=== PATIENT | female | born 1995 | race Hispanic/Latino ===

== ENCOUNTER 2025-01-25 02:35 | Emergency (ER) | payer OTHER, SELFPAY ==
[2025-01-25 02:39] VITALS: BP 125/75
[2025-01-25 02:58] VITALS: BMI 44.6
--- NOTE | 2025-01-25 03:06 | ED.GENMED ---
History of Present Illness
General
Chief Complaint: Chest Pain
Source: patient and family (Mother)
Exam Limitations: none
Time Seen by Provider: 01/25/25 03:01
Nursing documentation reviewed up to this point in time: agreed with
History of Present Illness
History of Present Illness:
Pleasant 29-year-old female presents to the emergency department with epigastric pain. The pain starts in her epigastrium and radiates up to her upper chest. Patient was at her dad's birthday alliance party and ate cake and approximately 15 minutes after
eating the cake she had developed this pain. She denies fever, chills, or shortness of breath. She did have some nausea without vomiting. Patient denies any cardiac history. She reports no medical problems except for PCOS for which she takes
metformin and OCPs. Patient has a family history for CVA and hypertension. Patient denies tobacco or illicit drug use. She drinks alcohol on occasion. She works for [employer]. She was seen at [facility] approximate year
ago for similar pain. She had a cardiac workup and was discharged with a diagnosis of anxiety. She has not seen a jointer submarine cable.
Review of Systems
Review of Systems
Allergies reviewed?: Yes
All Other Systems: ROS reviewed and negative except as documented in HPI and ROS
Constitutional: Reports no symptoms
EENT: Reports no symptoms
Respiratory: Denies trouble breathing
Cardiac: Reports chest pain
ABD/GI: Reports abdominal pain and nausea; Denies vomiting
: Reports no symptoms
Musculoskeletal: Reports no symptoms
Skin: Reports no symptoms
Neurological: Reports no symptoms
Endocrine: Reports no symptoms
Hematologic/Lymphatic: Reports no symptoms
Psychiatric: Reports no symptoms
Phy Exam
Physical Exam
Physical Exam:
Physical Exam
Vital signs and allergy list reviewed and agreed with.
GENERAL: Alert , in minimal apparent distress
EYE: pupils equal, EOMI, anicteric
NECK: Supple, no significant adenopathy. No masses. Trachea midline
ENT: Oropharynx is clear, mmm.
CARDIAC: Regular rate and rhythm . No M/R/G
LUNGS: Clear breath sounds bilaterally, no acute respiratory distress, no wheezes/rales/rhonchi
ABDOMEN: Soft, without focal tenderness, no r/g, no cvat. Normal BSx4q
NEUROLOGICAL: Alert and oriented, no focal neuro deficits
SKIN: Warm and dry, skin intact.
MUSCULOSKELETAL: No edema, well perfused. Moves all 4 extremities
PSYCH: Normal and appropriate interaction.
Scores
Heart Score for Chest Pain Patients
STEMI patient?: No
History: Slightly or Non-Suspicious
ECG: Normal
Age: </= 45 years
Risk Factors: 1 or 2 Risk Factors
Troponin: </= Normal Limit
Heart Score for Chest Pain Patients: 1
Heart Score Risk: 2.5% MACE over next 6 weeks
Course
Orders/Labs/Results
Orders:
Orders
01/25/25 02:36
ECG [Electrocardiogram (*1)] Urgent
Reason for Study: Chest Pain
EKG- Treatment ONCE
01/25/25 02:47
Test Result ONCE
01/25/25 03:06
Complete Blood Count/With Diff Urgent
Comprehensive Metabolic Panel Urgent
HCG, Serum Qualitative Screen Urgent
Troponin I Urgent
Urine Microscopic Reflex Cult Urgent
Urine Reflex Culture from UA [Urinalysis Reflex To Culture] Urgent
Date Specimen was Collected: 01/25/25
Time Specimen was Collected: 03:04
Urine Culture Urgent
SEA Source: U
Specimen Description:
Date Specimen was Collected: 01/25/25
Time Specimen was Collected: 03:04
0.9% Sodium Chloride 1000 ml [Nss] 1,000 ml IV BOLUS
Mag Hydrox/Al Hydrox/Simeth [Maalox] 30 ml Phenobarb/Hyoscy/Atropine/Scop [] 10 ml Viscous Lidocaine 2% [Xylocaine Viscous Cup] 10 ml PO NOW
Ondansetron Injectable [Zofran] 4 mg IV NOW STA
CR Chest - 2 Views Urgent
Comment:
Reason For Exam: cp
US Abdomen Complete/Upper Urgent
Comment:
Reason For Exam: epigastric and RUQ pain
01/25/25 03:07
Ondansetron Injectable [Zofran] 4 mg .ROUTE .STK-MED ONE
01/25/25 03:09
Mag Hydrox/Al Hydrox/Simeth [Maalox] 30 ml .ROUTE .STK-MED ONE
Phenobarb/Hyoscy/Atropine/Scop [] 10 ml .ROUTE .STK-MED ONE
Viscous Lidocaine 2% [Xylocaine Viscous Cup] 15 ml .ROUTE .STK-MED ONE
Abnormal Lab Results
01/25/25
03:06
MPV 10.7 H fL
(7.4-10.4)
Absolute Neuts (auto) 8.7 H 10^3/uL
(1.4-6.5)
Neutrophils % 82.9 H %
(42.2-75.2)
Lymphocytes % 12.2 L %
(20.5-51.1)
BUN 19 H mg/dl
(7-17)
Glucose 146 H mg/dl
(70-99)
Leukocyte Esterase Rfl 1+ A
(Negative)
Urine RBC 3-6 A /HPF
(0-2)
Urine Bacteria (Reflex) Moderate A
(Negative)
Urine Albumin (Reflex) 2+ A
(Neg - Trace)
01/25/25 03:06
01/25/25 03:06
Vital Signs
Initial and Last Documented VS:
Initial Vital Signs
Temp Pulse Resp BP Pulse Ox
97.5 F 71 20 125/75 100
01/25/25 02:39 01/25/25 02:39 01/25/25 02:39 01/25/25 02:39 01/25/25 02:39
Last Documented Vital Signs
Temp Pulse Resp BP Pulse Ox
97.5 F 72 18 136/88 99
01/25/25 02:39 01/25/25 06:23 01/25/25 06:23 01/25/25 06:23 01/25/25 06:23
*Critical Care Note
Total Time (30-74mins, 75-104mins- exclusive of procedures): Not Applicable
Update Note
Update Note:
Ultrasound right upper quadrant
IMPRESSION:
Several gallstones, largest measuring 1.0 cm within mildly distended gallbladder. No gallbladder wall thickening or pericholecystic fluid cleared negative Shin sign. Common bile duct measures upper limits of normal at 6 mm.
Heterogeneous hyperechoic fatty liver.
Kidneys without hydronephrosis.
No gross abnormality of the partially visualized pancreas and spleen.
Patient resting comfortably. Discussed relatively normal lab work and positive ultrasound findings with patient. At this point she is in no acute distress and wishes to be discharged. She will get the name of our general surgery doc as well as
pain medicine. Diagnosis is biliary colic.
ED Attending Note
-
Portions of this chart may have been created with voice recognition software.� Occasional wrong word or��sound alike� substitutions may have occurred due to the inherent limitations of voice recognition software.
Discharge Plan
Departure
Patient Disposition: Home (Routine Discharge)
Date of Disposition: 01/25/25
Time of Disposition: 04:59
Patient with high blood pressure during this ER visit?: Yes
Condition: Good
Discharge Problem:
Biliary colic
Instructions: Randall Diet, Gallstones ED, Abdominal Pain, BLOOD PRESSURE
Prescriptions:
New
diclofenac sodium 75 mg tablet,delayed release (DR/EC)
75 mg PO BID Qty: 10 0RF
Referrals:
Damien Dior MD [Active] - Call in 1-3 days for appt
Sarai Terrell MD [Family Provider] -
Activity Restrictions/Additional Instructions:
Your prescriptions were sent electronically to the pharmacy that you specified.
It was a pleasure meeting you and taking part in your care. We hope for your continued healing and wellness.
Please read discharge instructions in their entirety. However, they are for general education and may not describe your exact diagnosis at discharge. Information on your ER visit and medical conditions were discussed with you along with appropriate
follow up information...
If indicated, please take your medications as instructed and indicated on discharge paperwork.
Please schedule a follow up appointment as directed. Call to schedule an appointment
Please return to the emergency department with ANY change in, persisting, or worsening of symptoms. If any of your symptoms do not improve, or persist, or become more severe within 6-12 hours, please return to the emergency department for further
care.
Please return to the emergency department if you develop a headache, neck pain/stiffness, fever greater than 100.4F, chest pain, shortness of breath, persistent nausea, vomiting, slurred speech, difficulty walking, numbness/tingling, weakness, signs
of infection or any other symptoms that are worrisome to you.
If you have any questions or concerns please do not hesitate to call the Hospital at or E-mail me directly at [email or web address]
Interventions
Interventions:
*Risk Screen - Suicide Last Done: 01/25/25 02:39
*General Assessment Last Done: 01/25/25 02:39
*Neglect/Abuse Screening Last Done: 01/25/25 02:39
*ED- Fall Risk Assessment Last Done: 01/25/25 02:39
*ED COVID-19 Vaccine History Last Done: 01/25/25 02:39
*Nursing Disposition Last Done: 01/25/25 06:43
BC-Avcyol-Nkbifuvaij Assessment Last Done: 01/25/25 03:18
ED- Cardiac Assessment Last Done: 01/25/25 03:18
Discharge Date and Time
Discharge Date/Time: 01/25/25 06:45
Print Language: MONGOLIAN
[2025-01-25] MEDS: ZOFRAN 4 MG IV (03:09)
[2025-01-25] MEDS: MAALOX 50 PO (03:10)
[2025-01-25] MEDS: NSS 1000 IV (03:10)
[2025-01-25 03:13] LABS: % Basophils 0.6 % (0-2); % Eosinophils 1.1 % (0-6); % Immature Granulocytes 0.4 % (0-0.5); % Lymphocytes 12.2 % (20.5-51.1); % Monocytes 2.8 % (1.7-9.3); % Neutrophils 82.9 % (42.2-75.2); Absolute Basophils 0.1 10^3/uL (0-0.2); Absolute Eosinophils 0.1 10^3/uL (0-0.7); Absolute Lymphocytes 1.3 10^3/uL (1.2-3.4); Absolute Monocytes 0.3 10^3/uL (0.1-0.6); Absolute Neutrophils 8.7 10^3/uL (1.4-6.5); Hematocrit 42.6 % (37.0-47.0); Hemoglobin 14.9 g/dL (12.0-16.0); Mean Corpuscular Hgb 30.7 pg (27.0-31.0); Mean Corpuscular Volume 87.8 fL (81.0-99.0); Mean Platelet Volume 10.7 fL (7.4-10.4); Nucleated Red Blood Cells % 0 %; Platelet Count 268 10^3/uL (130-400); Red Blood Cell Count 4.85 10^6/uL (4.20-5.40); Red Cell Dist. Width 12.8 % (11.5-14.5); White Blood Cell Count 10.5 10^3/uL (4.8-10.8)
[2025-01-25 03:20] LABS: Urine Albumin 2+ (Neg - Trace); Urine Bilirubin Negative (Negative); Urine Character Clear (Clear); Urine Color Yellow; Urine Glucose Negative (Negative); Urine Ketone Negative (Negative); Urine Leukocyte 1+ (Negative); Urine Nitrite Negative (Negative); Urine Occult Blood Negative (Negative); Urine Urobilinogen Negative (Neg - 1+)
[2025-01-25 03:40] LABS: Troponin I < 0.012 ng/ml
[2025-01-25 03:57] LABS: HCG, Serum Qualitative Screen Negative
[2025-01-25 03:58] LABS: ALT (SGPT) 18 U/L (0-35); AST (SGOT) 29 U/L (14-36); Albumin 4.6 g/dl (3.5-5.0); Alkaline Phosphatase 52 U/L (38-126); Blood Urea Nitrogen 19 mg/dl (7-17); Calcium 9.4 mg/dl (8.4-10.2); Carbon Dioxide 23 mmol/L (22-30); Chloride 103 mmol/L (98-107); Estimated Creatinine Clearance 118 ml/min; Glucose 146 mg/dl (70-99); Potassium 4.7 mmol/L (3.5-5.1); Sodium 137 mmol/L (135-145); Total Protein 7.8 g/dl (6.3-8.2); eGFR > 60.00
[2025-01-25 04:00] VITALS: BP 140/94
[2025-01-25 04:19] LABS: Urine Squamous Cell >30 /LPF (Few)
[2025-01-25 04:20] LABS: Urine Bacteria Moderate (Negative); Urine Mucus Few
[2025-01-25 06:23] VITALS: BP 136/88
== END 2025-01-25 06:45 | disposition home or self-care (01) ==
LOC: EMR 02:35
PROVIDERS: EMERGENCY PHYSICIAN Student in an Organized Health Care Education/Training Program; FAMILY PHYSICIAN Internal Medicine
DX: K80.70 Calculus of gallbladder and bile duct without cholecystitis without obstruction (principal); R07.89 Other chest pain; F41.9 Anxiety disorder, unspecified; E28.2 Polycystic ovarian syndrome; Z79.3 Long term (current) use of hormonal contraceptives
CPT/HCPCS: 99285; 96374; 96361; 71046; 76700; 80053; 81003; 81015; 84484; 84703; 85025; 87086; 93005

== ENCOUNTER 2025-01-27 16:30 | Inpatient (IN) | payer OTHER, SELFPAY ==
[2025-01-27 14:12] VITALS: BP 128/72
--- NOTE | 2025-01-27 14:25 | EDRN ---
Joe Salomon PA in room w /pt.
--- NOTE | 2025-01-27 14:25 | ED.GENMED ---
History of Present Illness
General
Chief Complaint: Abdominal Pain
Source: patient and records
Time Seen by Provider: 01/27/25 14:16
History of Present Illness
History of Present Illness:
29-year-old female, recently seen in this emergency department and diagnosed with biliary colic, presenting to the emergency department for reevaluation due to continued right upper quadrant abdominal pain accompanied with a fever with Tmax of 100.4
last night, mild nausea (none presently) and on discharge instructions states that if symptoms were worsening or any fever to present back to the emergency. Patient states at present time pain is tolerable, 5 out of 10, located to the right upper
quadrant and nonradiating. Patient states her symptoms restarted last night after eating dinner. Patient states that she ate a bowl of porridge. She did attempt to contact the general surgery team and was given an appointment for late next week.
No new symptoms today.
Past History
Past History
ED Past Medical History: Other (PCOS)
ED Past Surgical History: None
Social History
Tobacco: Non-smoker
Alcohol: None
Drug: None
Living: with family
Review of Systems
Review of Systems
All Other Systems: ROS reviewed and negative except as documented in HPI and ROS
Phy Exam
Physical Exam
Physical Exam:
GENERAL: Alert , in no apparent distress
EYE: clear conjunctiva b/l
HEAD: NCAT
ENT: o/p clr, mmm.
CARDIAC: Regular rate and rhythm .
LUNGS: Clear breath sounds bilaterally, no acute respiratory distress, no wheezes/rales/rhonchi
ABDOMEN: Soft, tenderness to the right upper quadrant, no r/g, no cvat, negative Shin sign
NEUROLOGICAL: Alert and oriented
SKIN: Warm and dry, skin intact.
MUSCULOSKELETAL: well perfused.
PSYCH: Normal and appropriate interaction.
Scores
Heart Failure Risk
Heart Failure Risk Score: Not Applicable
Heart Score for Chest Pain Patients
STEMI patient?: Not applicable
Withdrawal Assessment of Alcohol
Withdrawal Assessment Completed?: Not applicable
Course
Orders/Labs/Results
Orders:
Orders
01/27/25 14:17
Test Result ONCE
01/27/25 14:46
COVID-19 Antigen Urgent
Source: Nasal Swab
Influenza A+B Rapid Molecular Urgent
SEA Source: Nasal Swab
Specimen Description:
01/27/25 14:47
Complete Blood Count/With Diff Urgent
Comprehensive Metabolic Panel Urgent
HCG, Serum Qualitative Screen Urgent
Lipase Urgent
01/27/25 15:34
Piperacillin/Tazo 3.375 Gram [Zosyn] 3.375 gram in 50 ml IV NOW
01/27/25 15:51
CT Abd/pelvis W Iv Cont Urgent
Comment:
Reason For Exam: abd pain, RUQ, fever
01/27/25 16:14
Admit/Transfer Patient As Directed
Co-Sign Provider:
Level of Care: Inpatient admission
Assign to:: Medical/Surgical
Physician / Group: Kaleigh Gonzalez
Diagnosis: Cholelithiasis
Reason for Hospitalization: Cholelithiasis
Expected length of stay greater than two midnights?: Yes
ELOS- Estimated Length of Stay in days: 2
I certify the patient meets the requirements for IP care: Yes
01/27/25 16:15
PRN Pain Medication Management As Directed
May give lesser potent ordered pain med per pt: Yes
preference::
Protocol:: Medication orders for pain may be administered in a
manner that supports deferring to patient preference
when the pt is:
- Requesting an ordered lesser potent pain medication.
Least to most potent pain medications are defined
as: acetaminophen < NSAID < tramadol < opioids
(morphine, oxycodone, hydromorphone).
- Requesting a lesser dose of the same medication IF
ORDERED.
- Requesting a less intrusive route of administration
if both routes are prescribed by the provider (PO <
IV).
01/27/25 16:16
Code Status As Directed
Resuscitation Status: Full Code
01/27/25 16:17
0.9% Sodium Chloride 500 ml [Nss] 500 ml IV BOLUS
Abnormal Lab Results
01/27/25
14:47
Absolute Neuts (auto) 6.6 H 10^3/uL
(1.4-6.5)
Absolute Monos (auto) 0.8 H 10^3/uL
(0.1-0.6)
Lymphocytes % 16.1 L %
(20.5-51.1)
Glucose 105 H mg/dl
(70-99)
01/27/25 14:47
01/27/25 14:47
Vital Signs
Initial and Last Documented VS:
Initial Vital Signs
Temp Pulse Resp BP Pulse Ox
99.1 F 94 16 128/72 97
01/27/25 14:12 01/27/25 14:12 01/27/25 14:12 01/27/25 14:12 01/27/25 14:12
Last Documented Vital Signs
Temp Pulse Resp BP Pulse Ox
98.8 F 84 16 130/90 98
01/27/25 15:40 01/27/25 17:03 01/27/25 17:03 01/27/25 17:03 01/27/25 17:03
MDM/Problems Addressed
Differential Diagnosis Includes:
Cholelithiasis, cholecystitis, choledocholithiasis, ascending cholangitis, less concern for appendicitis, GERD or gastritis
MDM/Problems Addressed:
29-year-old female presenting to the ER for evaluation of continued right upper quadrant abdominal pain, diagnosed 2 days ago with biliary colic. Fever last night of 100.4. She does have tenderness to the right upper quadrant but a negative Shin
sign. Ultrasound report was reviewed which showed multiple gallstones with the largest measuring 1 cm. Due to the reoccurring symptoms combined with fever will recheck labs. Will discuss with general surgery with anticipation that patient will be
admitted with plans for cholecystectomy.
*Radiology
Radiology exam reviewed: radiology read reviewed
*Pulse Oximetry
Patient hypoxic: no
*Critical Care Note
Total Time (30-74mins, 75-104mins- exclusive of procedures): Not Applicable
Data Reviewed
Review of Other/Old Records Reveals: Labs, Records and Radiology Studies
Patient Management
Discussion with other providers: Hospitalist and Security Administrator
Escalation/DeEscalation of care consider admission/obs:
Case d/w general surgery who recommends admit to medicine and will see in consult. They request CT be ordered. Hospitalist team accepts for continued eval and treatment
ED Attending Note
-
Portions of this chart may have been created with voice recognition software.� Occasional wrong word or��sound alike� substitutions may have occurred due to the inherent limitations of voice recognition software.
Discharge Plan
Departure
Patient Disposition: Admit
Date of Disposition: 01/27/25
Time of Disposition: 15:36
Presentation/result/management discussed w/ accepting MD/DO: Hospitalist
Discharge Problem:
Biliary colic
Interventions
Interventions:
*Risk Screen - Suicide Last Done: 01/27/25 14:53
*General Assessment Last Done: 01/27/25 14:53
*Neglect/Abuse Screening Last Done: 01/27/25 14:53
*ED- Fall Risk Assessment Last Done: 01/27/25 14:53
*ED COVID-19 Vaccine History Last Done: 01/27/25 14:53
OD-Tpbkcy-Qkmwpvoagm Assessment Last Done: 01/27/25 14:53
[2025-01-27 14:53] VITALS: BMI 42.5
[2025-01-27 15:04] LABS: % Basophils 0.6 % (0-2); % Eosinophils 2.2 % (0-6); % Immature Granulocytes 0.3 % (0-0.5); % Lymphocytes 16.1 % (20.5-51.1); % Monocytes 8.4 % (1.7-9.3); % Neutrophils 72.4 % (42.2-75.2); Absolute Basophils 0.1 10^3/uL (0-0.2); Absolute Eosinophils 0.2 10^3/uL (0-0.7); Absolute Lymphocytes 1.5 10^3/uL (1.2-3.4); Absolute Monocytes 0.8 10^3/uL (0.1-0.6); Absolute Neutrophils 6.6 10^3/uL (1.4-6.5); Hematocrit 42.3 % (37.0-47.0); Hemoglobin 14.5 g/dL (12.0-16.0); Mean Corp Hgb Conc. 34.3 g/dL (33.0-37.0); Mean Corpuscular Hgb 30.3 pg (27.0-31.0); Mean Corpuscular Volume 88.3 fL (81.0-99.0); Mean Platelet Volume 10.4 fL (7.4-10.4); Nucleated Red Blood Cells % 0 %; Platelet Count 258 10^3/uL (130-400); Red Blood Cell Count 4.79 10^6/uL (4.20-5.40); White Blood Cell Count 9.1 10^3/uL (4.8-10.8)
[2025-01-27 15:14] LABS: ALT (SGPT) 15 U/L (0-35); AST (SGOT) 19 U/L (14-36); Alkaline Phosphatase 55 U/L (38-126); Blood Urea Nitrogen 14 mg/dl (7-17); Carbon Dioxide 26 mmol/L (22-30); Chloride 103 mmol/L (98-107); Estimated Creatinine Clearance > 125 ml/min; Glucose 105 mg/dl (70-99); Lipase 75 U/L (23-300); Sodium 136 mmol/L (135-145); Total Bilirubin 0.8 mg/dl (0.2-1.3); Total Protein 7.3 g/dl (6.3-8.2); eGFR > 60.00
[2025-01-27 15:21] LABS: HCG, Serum Qualitative Screen Negative
[2025-01-27 15:38] LABS: COVID-19 Antigen Negative (Negative)
--- NOTE | 2025-01-27 15:38 | EDRN ---
Joe Salomon PA in w/ pt just now and pt will be admitted and surgery is in on admit.
--- NOTE | 2025-01-27 15:39 | HPS.HSE ---
Addendum entered and electronically signed by XIANG Cohen 01/27/25 18:32:
Admitting nurse notified admission staff that patient screening identified recent suicidal ideation. Consult entered for psych.
Original Note:
Family Physician
-
Family Physician:
Chief Complaint
-
abdominal pain
History of Present Illness
Patient is a 29-year-old female with no significant past medical history who presented to [facility] ED for evaluation of right upper quadrant abdominal pain with fever. Patient was seen in [facility] ED 2 days ago for similar
complaints was discharged with diagnosis of biliary colic and instructed to follow up with general surgery. Patient reports she went home utilized PRN pain medication and felt better for the rest of Saturday and most of the day yesterday. After eating
dinner yesterday she stated the pain in the right upper quadrant returned with associated nausea and fever/chills. Patient returned today to ED today with unrelieved symptoms. Patient denies any cough, shortness of breath, chest pain, vomiting,
constipation, diarrhea or urinary symptoms.
Medical History
Past Medical History
Past Medical History: Reports Other
Additional Past Medical History:
PCOS
Past Surgical History: Reports None
Social History
Tobacco: Non-smoker
Alcohol: Occasional
Drug: None
Personal: Single
Living: With Family
Employment: Employed
Family History
Family History: Other (Mother: DM, HTN, CKD; Father: HTN, CVA)
Allergies / Home Medications
Allergies reflects when Allergies were last updated in [facility].
Home Medications with original date entered in [facility]
Allergy/Medication List:
Allergies
Allergy/AdvReac Type Severity Reaction Status Date / Time
No Known Allergies Allergy Verified 01/27/25 14:15
Home Medications
diclofenac sodium 75 mg tablet,delayed release 75 mg PO BIDPRN PRN mild pain 01/27/25
ibuprofen 200 mg tablet (Advil) 400 mg PO DAILYPRN PRN MILD PAIN 01/27/25
levonorgestrel 0.15 mg-ethinyl estradiol 0.03 mg tablet (Altavera (28)) 1 tab PO HS 01/27/25
metformin 500 mg tablet 500 mg PO BID 01/27/25
Review of Systems
-
History Source: Patient
Constitutional: Reports Fever and Chills
EENT: Reports No Symptoms
Respiratory: Reports No Symptoms
Cardiac: Reports No Symptoms
Abdomen/GI: Reports Abdominal Pain and Nausea
: Reports No Symptoms
Musculoskeletal: Reports No Symptoms
Skin: Reports No Symptoms
Neurological: Reports No Symptoms
Endocrine: Reports No Symptoms
Hematologic/Lymphatic: Reports No Symptoms
Psych: Reports No Symptoms
Physical Exam
Vital Signs
Vital Signs
Temp Pulse Resp BP Pulse Ox
99.1 F 94 16 128/72 97
01/27/25 14:12 01/27/25 14:12 01/27/25 14:12 01/27/25 14:12 01/27/25 14:12
Physical Exam
General: Well Developed, Well Nourished, No Apparent Distress, Comfortable and Conversant
HEENT: NormoCephalic, Moist mucous membranes, Atraumatic, PERRLA, [place] Conjunctivae, Nose Appears Normal and Ears Appear Normal
Respiratory: Clear and Non Labored Respirations
Cardiac: S1/S2 and Regular Rhythm; No Murmur, Rub or Gallop
Breast: Deferred by me
GI: Soft, Non Distended, Normal Bowel Sounds and Tender; No Organomegaly
Rectal: Deferred by Provider
Genito-urinary: Deferred by me
Musculoskeletal: No Clubbing, No Cyanosis and No Edema
Skin: IV/Catheter Site; No Rash
Neuro: Awake, Alert, AO x 3 and Nonfocal/grossly intact
Psych: Calm and Intact Judgment/Insight
Laboratory Results
-
01/27/25 14:47
01/27/25 14:47
Laboratory Results
Total Bilirubin 0.8 mg/dl (0.2-1.3) 01/27/25 14:47
AST 19 U/L (14-36) 01/27/25 14:47
ALT 15 U/L (0-35) 01/27/25 14:47
Alkaline Phosphatase 55 U/L (38-126) 01/27/25 14:47
Lipase 75 U/L (23-300) 01/27/25 14:47
Data Reviewed
-
Ultrasound: Report Reviewed by me (Abd: Cholelithiasis. No gallbladder wall thickening or biliary tract dilatation. Negative sonographic Shin's sign. Heterogeneous, possibly mildly diffusely fatty liver. Pancreas significantly obscured, most
likely by overlying bowel gas.)
Lab Data: Labs Reviewed by me
Impression/Plan
-
IMPRESSION/PLAN:
#Cholelithiasis
Abd US (01/25/2025): Cholelithiasis. No gallbladder wall thickening or biliary tract dilatation. Negative sonographic Shin's sign.
Heterogeneous, possibly mildly diffusely fatty liver.
Pancreas significantly obscured, most likely by overlying bowel gas.
- Admit to med/surg
- Consult Surgery
- Abd/Pelvis CT pending
- NPO @ midnight for OR tomorrow
- IVF
- IV Zosyn
- supportive care
#PCOS
- hold metformin
Code status: full code
DVT prophylaxis: SCDs
[2025-01-27 15:40] VITALS: BP 111/82
--- NOTE | 2025-01-27 15:48 | W.PN.UPDATE ---
Update Note
Progress Note Update
This is an addendum to H&P written by KEY CUTTER Nanda Velazquez
I saw and examined the patient.
The KEY CUTTER's note was reviewed and I agree with the note.
Comment:
Ms. Amy Rasheed is a 29 yo woman without significant history, seen in the ER on 01/25 for biliary colic presents to the ER today with continued pain and fever.
Triage VS: T 99.1, P 94, RR 16, BP 128/72, SpO2 97%
On exam patient is conversant, in no acute distress; mild RUQ tenderness, abdomen soft no rebound/guarding
LABS: WBC 9.1, Hg 14.5, PLT 258, Na 136, K+ 4.0, Cl 103, CO2 26, Cr 0.7, Glucose 105, liver enzymes WNL, HCG negative
Covid negative; Influenza Negative
Abdominal US from 01/25/25
IMPRESSION: Cholelithiasis. No gallbladder wall thickening or biliary tract dilatation. Negative sonographic Shin's sign.
Heterogeneous, possibly mildly diffusely fatty liver.
Pancreas significantly obscured, most likely by overlying bowel gas.
Cholecystitis
-recent ER visit for Biliary Colic now presents with continued pain and fever
-CT recommended by General Surgery, ordered
-IV Zosyn
-IVF
-NPO after MN for cholecystectomy
-pain control
--- NOTE | 2025-01-27 15:53 | EDRN ---
Nanda OTOOLE in room w/ pt at this time. Surgeon in room w/ pt at this time, Dr. Nicole.
--- NOTE | 2025-01-27 16:19 | EDRN ---
Dr. Gonzalez in room w/ pt at this time.
[2025-01-27] MEDS: ZOSYN 50 IV ×2 (16:51→21:31)
[2025-01-27] MEDS: NSS 500 IV (16:51)
[2025-01-27 17:03] VITALS: BP 130/90
[2025-01-27 18:00] VITALS: BP 127/84
--- NOTE | 2025-01-27 18:08 | PTCARENOTE ---
pt admitted from ED to bed 1145-01. pt ambulated from stretcher to bed without difficulty. AAOX3. pt NPO after midnight for OR in AM.
[2025-01-27 18:09] VITALS: BMI 43.6
--- NOTE | 2025-01-27 18:15 | PTCARENOTE ---
pt answered yes to suicide screening questions prompting order for 1:1. pt denies intent or plan for suicide but reports had thoughts that were within the last two weeks but no current thoughts of suicide. Dr Gonzalez notified, states no need for 1:1
and psych consult placed. Nursing outside plant supervisor also notified
--- NOTE | 2025-01-27 18:25 | CON.GS ---
Consultation
-
Date/Time Consultation Requested: 01/27/2025 4 PM
Date/Time Consultation Performed: 01/27/2025 5 PM
Requesting Provider: Emergency room
Performing Provider: Dr. Chance
Reason for Consultation: Acute cholecystitis
Medical History
-
Chief Complaint: Right upper quadrant pain
History of Present Illness:
This is a 29-year-old female with no significant past medical history other than morbid obesity who presents with a 3 to 4-day history of postprandial right upper quadrant pain. She presented to our hospital 2 days ago where an ultrasound was
performed which demonstrated cholelithiasis but no other overt stigmata of cholecystitis. Her pain improved after pain medication and she was discharged home there however pain returned after her next meal and she did have 1 fever which prompted
her to come back to the ED. Given her history and duration of her symptoms general surgery was consulted. The patient denies Fever, Chest Pain, Shortness Of Breath, Nausea, Vomiting, changes in urinary and bowel habits, unintentional weight loss,
jaundice, icterus, acolic stools.
Past Medical History
Past Medical History: None
Past Surgical History: None
Social History
Tobacco: Non-Smoker
Alcohol: Occasional
Drug: None
Personal: Single
Family History
Family History: Reviewed & Not Pertinent
Allergies / Home Medications
Allergy/AdvReac Type Severity Reaction Status Date / Time
No Known Allergies Allergy Verified 01/27/25 14:15
�Medication �Instructions �Recorded �Confirmed �Type
diclofenac sodium 75 mg 75 mg PO BIDPRN PRN mild pain 01/27/25 01/27/25 History
tablet,delayed release
ibuprofen 200 mg tablet (Advil) 400 mg PO DAILYPRN PRN MILD PAIN 01/27/25 01/27/25 History
levonorgestrel 0.15 mg-ethinyl 1 tab PO HS 01/27/25 01/27/25 History
estradiol 0.03 mg tablet (Altavera
(28))
metformin 500 mg tablet 500 mg PO BID 01/27/25 01/27/25 History
Review of Systems
-
All other systems: Negative unless noted
A 10 point review of systems was completed, and was negative except as per HPI.
Physical Exam
Vital Signs
Temp Pulse Resp BP Pulse Ox
97.9 F 89 18 127/84 97
01/27/25 18:00 01/27/25 18:00 01/27/25 18:00 01/27/25 18:00 01/27/25 18:00
01/26/25 01/27/25 01/28/25
06:59 06:59 06:59
Actual Weight 104.553 kg
Body Mass Index (BMI) 43.6
Lab Results
01/27/25 14:47
01/27/25 14:47
WBC 9.1 10^3/uL (4.8-10.8) 01/27/25 14:47
Hgb 14.5 g/dL (12.0-16.0) 01/27/25 14:47
Hct 42.3 % (37.0-47.0) 01/27/25 14:47
Plt Count 258 10^3/uL (130-400) 01/27/25 14:47
Abs Immat Gran (auto) 0.0 10^3/uL (0-0.05) 01/27/25 14:47
Neutrophils % 72.4 % (42.2-75.2) 01/27/25 14:47
Physical Exam
General: Well Developed
HEENT: Normocephalic
Respiratory: Non Labored Respirations
GI: Soft, Non Distended, Tender and Obese
Data Reviewed
-
CT Scan: Image Personally Visualized and interpreted and Report Reviewed by me
Ultrasound: Image Personally Visualized and interpreted, Report Reviewed by me, Discussed with Patient and Discussed with Family
Total Time Spent with Patient (in minutes): 30
Assessment / Plan
-
This is a 29-year-old female who presents with postprandial right upper quadrant pain it has been going on for at least 2 to 3 days. Ultrasound demonstrates cholelithiasis though no overt stigmata of cholecystitis. Nevertheless the patient patient
is mildly tender to palpation but her exam is somewhat limited due to her body habitus. I have a high suspicion for acute cholecystitis.
Admit for observation.
Please obtain a CT scan to confirm the diagnosis, ultrasound may be limited in morbidly obese patients
Addendum:
CT scan reviewed which shows a significantly thickened gallbladder wall with pericholecystic fluid and edema as well as large intraluminal gallstones, confirming the diagnosis of acute cholecystitis.
N.p.o., IV fluids, IV antibiotics.
Will plan for a laparoscopic cholecystectomy tomorrow, either with myself or Dr. Rothman.
All questions answered, patient and family agreeable to plan of care above.
General surgery will follow
[2025-01-27] MEDS: NSS 1000 IV (18:29)
[2025-01-27 23:15] VITALS: BP 128/78
[2025-01-28] VITALS (9 sets, daily range): BP systolic 111–130; BP diastolic 65–83
[2025-01-28] MEDS: ZOSYN 50 IV ×4 (03:59→21:43)
[2025-01-28] MEDS: NSS 1000 IV ×2 (03:59→18:40)
--- NOTE | 2025-01-28 06:10 | PTCARENOTE ---
pt has been npo- chg wipes done again. periop teaching done - no pain overnight.
[2025-01-28 06:34] LABS: Hematocrit 38.4 % (37.0-47.0); Hemoglobin 13.4 g/dL (12.0-16.0); Mean Corp Hgb Conc. 34.9 g/dL (33.0-37.0); Mean Corpuscular Hgb 30.7 pg (27.0-31.0); Mean Corpuscular Volume 87.9 fL (81.0-99.0); Mean Platelet Volume 10.2 fL (7.4-10.4); Platelet Count 248 10^3/uL (130-400); Red Blood Cell Count 4.37 10^6/uL (4.20-5.40); Red Cell Dist. Width 12.9 % (11.5-14.5); White Blood Cell Count 9.1 10^3/uL (4.8-10.8)
[2025-01-28 07:12] LABS: ALT (SGPT) 15 U/L (0-35); AST (SGOT) 19 U/L (14-36); Albumin 3.7 g/dl (3.5-5.0); Alkaline Phosphatase 61 U/L (38-126); Blood Urea Nitrogen 11 mg/dl (7-17); Calcium 8.3 mg/dl (8.4-10.2); Carbon Dioxide 23 mmol/L (22-30); Chloride 104 mmol/L (98-107); Estimated Creatinine Clearance 117 ml/min; Glucose 96 mg/dl (70-99); Magnesium 2.1 mg/dl (1.6-2.3); Sodium 137 mmol/L (135-145); Total Bilirubin 1.3 mg/dl (0.2-1.3); Total Protein 6.6 g/dl (6.3-8.2); eGFR > 60.00
[2025-01-28] MEDS: TORADOL 10 MG IV ×2 (08:21→19:28)
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
--- NOTE | 2025-01-28 11:36 | CM ---
Initial assessment and CM Consult completed at bedside
Patient reported that she has not had recent thoughts of suicide; and sees a Therapist every two weeks; Psych consult completed this morning
Pharmacy verified: [facility] @ [address] [facility], [place]
Patient reported she lives with family in a multilevel home 3 steps to enter; powder room 1st floor; 12-13 steps to 2nd floor bath/bedroom; railings on stairs
PLOF: reported she is independent with ambulation, stairs and ADLs
No DME
NO SNF or Home Health utilization history
Scheduled for Lap Merlene today
Family will transport home
Plan: discharge to home when medically stable; no needs anticipated; CM will monitor and support as needed
--- NOTE | 2025-01-28 13:31 | W.PN.UPDATE ---
Update Note
Progress Note Update
Seen and examined by me independently in collaboration with the medical associate.
Lab data and imaging data reviewed.
Addendum as below :
Patient presents with acute cholecystitis.
Afebrile and hemodynamically stable. Not septic today.
EKG normal. No clinical risk predictors other than diabetes.
Patient at low risk for cardiovascular event for proposed surgery. Proceed with lap cholecystectomy as planned.
--- NOTE | 2025-01-28 13:55 | W.PN.SURGUPD ---
Surgical Update
Surgical Update
Patient seen and examined in the preoperative holding area. Her mother is at bedside.
I discussed with the patient and her mother the indications for consideration of cholecystectomy in the setting of acute calculus cholecystitis and intractable abdominal pain we discussed the pertinent biliary anatomy utilizing a bedside diagram and
trolling as well as the steps of the surgical procedure anticipated to be a laparoscopic cholecystectomy with possible cholangiogram. The operation was reviewed in detail including alternative treatment options, benefits and potential risk such as
but not limited to bleeding, infectious and wound related complications iatrogenic injury to surrounding viscera, bile duct injury, bile leak and fatty food intolerances post cholecystectomy. Any of the patient's or her mother's concerns or
questions were fully addressed and written informed consent was obtained.
Proceeding with cholecystectomy at this time
--- NOTE | 2025-01-28 13:56 | W.SUR.PREOP ---
Pre-Operative Surgical Note
-
I have examined this patient prior to the performance of the scheduled procedure.
The patient's condition is unchanged from the time of the current History and
Physical and the patient is able to undergo the scheduled procedure.
[2025-01-28] MEDS: NSS IV (16:01)
--- NOTE | 2025-01-28 16:02 | CM ---
OT recommended outpatient Occupational Therapy for [employer]
CM notified Attending and requested a script be placed on chart
--- NOTE | 2025-01-28 16:04 | W.IMMPOSTOP ---
Addendum entered and electronically signed by Rob Rothman MD 01/28/25 16:17:
#[id number]
Original Note:
Surgical Immed Post Op Note
-
Primary Surgeon: Rob Rothman MD
Assisting Surgeon: Gildardo THOMPSON; EMILY eMra
Pre-op Diagnosis: Acute calculus cholecystitis
Post-op Diagnosis: Acute calculus cholecystitis with cystic duct obstruction/hydrops
Procedure Performed: Laparoscopic cholecystectomy
Anesthesia Type: GETA +0.25% Marcaine
Specimen / Cultures: Gallbladder/none
Estimated Blood Loss: 8 mL
Complications: None immediate
Operative Findings: Large tensely distended gallbladder with impacted stones in the mid gallbladder body. Wall thickening, edema, hydropic gallbladder cyst needle decompression to aid in carefully grasping and retracting. Cystic triangle
carefully dissected free identifying cystic duct and main cystic artery which were controlled with clips. Gallbladder removed off liver bed intact and extracted at epigastric port site. The 12 mm trocar site had to be enlarged to about 3 cm to
accommodate the large distended gallbladder filled with stones.
Patient's mother updated postoperatively in the waiting area
Postop plan: Continue IV antibiotics overnight but no need for antibiotics on discharge.
Low-fat diet as tolerated postoperatively
Anticipate probable discharge tomorrow if tolerating p.o. intake, ambulating and pain controlled
[2025-01-28] MEDS: DILAUDID 0.25 MG IV (16:10)
[2025-01-28] MEDS: ZOFRAN 4 MG IV (16:20)
--- NOTE | 2025-01-28 16:33 | W.PN.HOSP.TC ---
Today's Communication/Plan
-
Laparoscopic cholecystectomy
Assessment / Plan
Assessment / Plan
Acute cholecystitis:
Afebrile. CT with gallbladder wall thickening and/or pericholecystic edema.
NPO. For laparoscopic cholecystectomy today
PCOS, obesity:
-Holding metformin, will resume upon discharge
DVT ppx: SCDs
Code Status: Full code
Anticipated Discharge: Within 24 hours
Subjective/Interval History
-
Date of Service: January 28, 2025
Objective Data
-
Labs:
Laboratory Results
01/28/25
06:12
WBC 9.1
Hgb 13.4
Hct 38.4
Plt Count 248
Sodium 137
Potassium 4.0
Chloride 104
Carbon Dioxide 23
BUN 11
Creatinine 0.8
Glucose 96
Calcium 8.3 L
Total Bilirubin 1.3
AST 19
ALT 15
Alkaline Phosphatase 61
Vital Signs:
Vital Signs
Temp Pulse Resp BP Pulse Ox
97.4 F 78 16 117/74 99
01/28/25 16:02 01/28/25 16:15 01/28/25 16:15 01/28/25 16:15 01/28/25 16:25
I&O
01/27/25 01/28/25 01/29/25
06:59 06:59 06:59
Intake Total 240 / 240
Output Total /
Balance -1 / -1 240 / 240
Review of Systems
-
History Source: Patient
Constitutional: Denies Fever
Abdomen/GI: Reports Abdominal Pain (mild soreness); Denies Nausea or Vomiting
Physical Exam
-
General: Well Nourished, No Apparent Distress and Comfortable
HEENT: Normocephalic and Atraumatic
Respiratory: Clear to Auscultation and Non Labored Respirations; Negative Wheezes, Rales, Rhonchi or Crackles
Cardiac: Regular Rhythm and S1/S2; Negative Murmur, Rub or Calf Tenderness
GI: Soft, Nontender, Nondistended and Normal Bowel Sounds
Musculoskeletal: No Cyanosis and No Edema
Neuro: Awake, Alert and Oriented
Psych: Calm
--- NOTE | 2025-01-28 17:01 | PTCARENOTE ---
Pt received from PACU in bed. Drowsy, slightly anxious, 5/10 ab pain, dozing intermittently. Mother at bedside. Denies nausea, given Zofran in PACU. NS @ 100mL/hr. VSS.
[2025-01-28] MEDS: LOVENOX 40 MG SC (17:05)
[2025-01-29 03:02] VITALS: BP 104/63
--- NOTE | 2025-01-29 04:18 | PTCARENOTE ---
pt passing gas and has urinated several times- medicated x1 with toradol for pain. lap sites intact.
[2025-01-29] MEDS: ZOSYN 50 IV ×2 (04:41→09:34)
[2025-01-29] MEDS: NSS 1000 IV (04:43)
[2025-01-29] MEDS: TORADOL 10 MG IV (04:46)
--- NOTE | 2025-01-29 07:33 | W.PN.GS2 ---
Today's Communication / Plan
-
`
Assessment / Plan
-
Assessment: 29-year-old female POD #1 status post lap aleksandra for acute calculus cholecystitis
AFVSS
Doing well postop
Plan: Stable for discharge home, low-fat diet
Discharge instructions reviewed
Subjective Data
-
Date of Service: January 29, 2025
Patient seen and examined.
Overall feeling well postop. Discomfort predominantly at epigastric incision site as expected. Pain controlled.
No nausea
Ordering breakfast
Voiding easily postop
Objective Data
-
Intake and Output
01/28/25 01/29/25 01/30/25
06:59 06:59 06:59
Intake Total 3790 / 3790
Output Total
Balance -1 / -1 3790 / 3790
Intake:
Oral fluids 1440 / 1440
IV fluids (Total) 2250 / 2250
normosol 50 / 50
IV piggybacks 100 / 100
Output:
Liquid stool amount
Rectum /
Other:
Number of approximated MODERATE 1 3
amounts of urine
Number of approximated LARGE 3
amounts of urine
Vital Signs
Temp Pulse Resp BP Pulse Ox
98.3 F 72 18 104/63 96
01/29/25 03:02 01/29/25 03:02 01/29/25 03:02 01/29/25 03:02 01/29/25 03:02
Calcium 8.3 mg/dl (8.4-10.2) L 01/28/25 06:12
Magnesium 2.1 mg/dl (1.6-2.3) 01/28/25 06:12
Total Bilirubin 1.3 mg/dl (0.2-1.3) 01/28/25 06:12
AST 19 U/L (14-36) 01/28/25 06:12
ALT 15 U/L (0-35) 01/28/25 06:12
Alkaline Phosphatase 61 U/L (38-126) 01/28/25 06:12
Total Protein 6.6 g/dl (6.3-8.2) 01/28/25 06:12
Albumin 3.7 g/dl (3.5-5.0) 01/28/25 06:12
Physical Exam
-
NAD AAOx3
[2025-01-29 07:35] VITALS: BP 120/72
--- NOTE | 2025-01-29 08:16 | W.PN.HOSP.TC ---
Today's Communication/Plan
-
Stable for discharge
Assessment / Plan
Assessment / Plan
Acute cholecystitis:
RUQ pain. CT with gallbladder wall thickening and/or pericholecystic edema.
-Status post lap cholecystectomy postop day 1. Tolerating diet. Hgb stable. Cleared by surgery for discharge.
-Prefers not to take narcotics. Wants to manage pain with Tylenol and Advil.
Medically stable for discharge
PCOS, obesity:
-Resume metformin on discharge
Suicidal ideation:
No obvious active suicide risk per psych evaluation
-Outpatient evaluation and increased frequency of therapy recommended
-Encourage exercise which can help with depression and anxiety
DVT ppx: SCDs
Code Status: Full code
Anticipated Discharge: Today
Subjective/Interval History
-
Date of Service: January 29, 2025
Objective Data
-
Labs:
Laboratory Results
01/29/25
06:00
WBC Pending
Hgb Pending
Hct Pending
Plt Count Pending
Sodium Pending
Potassium Pending
Chloride Pending
Carbon Dioxide Pending
BUN Pending
Creatinine Pending
Glucose Pending
Calcium Pending
Total Bilirubin Pending
AST Pending
ALT Pending
Alkaline Phosphatase Pending
Vital Signs:
Vital Signs
Temp Pulse Resp BP Pulse Ox
98.3 F 72 18 104/63 96
01/29/25 03:02 01/29/25 03:02 01/29/25 03:02 01/29/25 03:02 01/29/25 03:02
I&O
01/28/25 01/29/25 01/30/25
06:59 06:59 06:59
Intake Total 3790 / 3790
Output Total
Balance - / -1 3790 / 379
Review of Systems
-
History Source: Patient
Abdomen/GI: Reports Abdominal Pain (Right upper quadrant tenderness) and Other (Tolerating low-fat diet); Denies Nausea or Vomiting
Physical Exam
-
General: Well Nourished, No Apparent Distress and Comfortable
HEENT: Normocephalic and Atraumatic
Respiratory: Non Labored Respirations
GI: Nondistended
Neuro: Awake, Alert and Oriented
Psych: Calm
[2025-01-29 08:40] LABS: Hematocrit 37.5 % (37.0-47.0); Hemoglobin 13.2 g/dL (12.0-16.0); Mean Corp Hgb Conc. 35.2 g/dL (33.0-37.0); Mean Corpuscular Hgb 30.6 pg (27.0-31.0); Mean Corpuscular Volume 86.8 fL (81.0-99.0); Mean Platelet Volume 10.5 fL (7.4-10.4); Platelet Count 264 10^3/uL (130-400); Red Blood Cell Count 4.32 10^6/uL (4.20-5.40); Red Cell Dist. Width 12.3 % (11.5-14.5); White Blood Cell Count 10.5 10^3/uL (4.8-10.8)
[2025-01-29 09:14] LABS: ALT (SGPT) 28 U/L (0-35); AST (SGOT) 30 U/L (14-36); Albumin 3.6 g/dl (3.5-5.0); Alkaline Phosphatase 61 U/L (38-126); Blood Urea Nitrogen 12 mg/dl (7-17); Calcium 8.4 mg/dl (8.4-10.2); Carbon Dioxide 21 mmol/L (22-30); Chloride 105 mmol/L (98-107); Estimated Creatinine Clearance > 125 ml/min; Glucose 121 mg/dl (70-99); Potassium 4.1 mmol/L (3.5-5.1); Sodium 136 mmol/L (135-145); Total Bilirubin 0.9 mg/dl (0.2-1.3); Total Protein 6.3 g/dl (6.3-8.2); eGFR > 60.00
[2025-01-29] MEDS: TYLENOL 650 MG PO (09:40)
[2025-01-29 11:01] LABS: Vitamin D, 25-OH*** 23.6 ng/mL (30-80)
[2025-01-29 11:14] LABS: TSH Reflex To Free T4 1.02 uIU/ml (0.47-4.68)
[2025-01-29 11:22] VITALS: BP 117/74
[2025-01-29 11:51] LABS: Folate 14.2 ng/ml (2.76-20); Vitamin B12 613 pg/ml (239-931)
--- NOTE | 2025-01-29 12:34 | CM ---
CM reviewed medical records. Plan for discharge to home NO needs noted.
PLAN: home no needs.
[2025-01-29 12:55] VITALS: BP 121/80
[2025-01-29] MEDS: AFLURIA (36 mos+) 2024-2025 FORMULA 0.5 ML IM (13:05)
--- NOTE | 2025-01-29 13:40 | W.PN.UPDATE ---
Update Note
Progress Note Update
Seen and examined by me independently in collaboration with the certified ophthalmic medical technician.
Lab data and imaging data reviewed.
Addendum as below :
Status post lap cholecystectomy postop day 1. Tolerating diet. Abdomen soft. Cleared by surgery for discharge. Prefers not to take narcotics. Wants to manage pain with Tylenol and Advil.
Medically stable for discharge. Resume her metformin on discharge.
--- NOTE | 2025-01-29 21:24 | W.DCSUMMARY ---
Discharge Summary
Discharge Data
Date of Admission: 01/27/25
Date of Discharge: 01/29/25
-
Pending Results: No
Hospital Course
Discharging Physician : Yecenia Perales MD., Toni Newton MD.
Disposition : Home
Principal Discharge diagnosis : Acute calculus cholecystitis, laparoscopic cholecystectomy
Chronic Discharge diagnosis : Polycystic ovary syndrome, morbid obesity
Hospital Course :
29-year-old female with above past medical history presented to [facility] ED for evaluation of right upper quadrant abdominal pain with fever. She was seen in [facility] ED 2 days prior for similar complaints and was discharged
with diagnosis of cholelithiasis, instructed to follow up with general surgery. Patient reports she went home, utilized PRN pain medication with intermittent relief, but after eating dinner on the day prior to arrival, right upper quadrant returned
with associated nausea and fever/chills. She denied any cough, shortness of breath, chest pain, vomiting, constipation, diarrhea or urinary symptoms patient denies any cough, shortness of breath, chest pain, vomiting, constipation, diarrhea or
urinary symptoms. In the ED, vitals were stable, and CBC/chemistry was mostly unremarkable.
Unfortunately, there was suicidal ideation noted upon intake. Subsequent psychiatric evaluation with concern for dysthymia and PTSD. Occasional suicidal ideation with no intent or plan. Recommendations include to seek outpatient psych eval, increase
frequency of biweekly therapy to weekly, and to begin exercising as this is helpful for anxiety and depression.
Abdominal CT revealed gallbladder wall thickening and/or pericholecystic edema. Laparoscopic cholecystectomy was planned and patient was placed n.p.o. in anticipation for surgery. Surgery was done on 01/28/2025 with no immediate complications. On
postop day 1, patient was tolerating low-fat diet, abdomen was soft, and pain was well-managed. She was assessed to be stable for discharge. Per patient's own preference no narcotics were prescribed upon discharge and plan was to manage pain with
Tylenol and Advil. She is to follow-up with general surgeon, Dr. Rothman in 2 to 3 weeks, and follow postop care instructions as included in discharge information packet.
Important imaging findings :
CT abdomen/pelvis with IV contrast 01/27/2025:
-Cholelithiasis. There is a circumferential rim of decreased density surrounding the enhancing gallbladder lumen, suggesting gallbladder wall thickening and/or pericholecystic edema. No significant stranding of the fat surrounding the gallbladder.
These findings suggest the possibility of acute cholecystitis, and please correlate clinically.
-No evidence for biliary ductal dilation.
-No evidence for bowel obstruction or free intraperitoneal air. There are no findings to suggest appendicitis
Procedure findings :
Laparoscopic cholecystectomy 01/28/2025:
Acute calculous cholecystitis with cystic duct obstruction/hydrops.
Discharge Plan
-
Patient Disposition: Home (Routine Discharge)
Discharge Diagnosis/Procedures: Acute calculus cholecystitis. Laparoscopic cholecystectomy
Condition: Good
Diet: As tolerated and Low Fat
Additional Diets: Smaller meals initially after surgery as abdominal bloating and distention are common for the first few days
Activity: No strenuous activity
Additional Activity: No lifting over 20 pounds for 4 weeks postoperatively
Driving Restrictions: No driving for 1 to 2 days or if using narcotics
Bathing Restrictions: OK to Shower
Wound Care: Glue at surgical sites typically peels off in 2 to 3 weeks
Activity Restrictions/Additional Instructions:
�Rob Rothman MD [facility] General Surgery
[facility]
[address], [address]
[place] [address]
[phone]
Post-Operative Instructions for Gallbladder Surgery
The incision sites are sealed with a surgical glue dressing.� It is safe to shower at any time after surgery when the glue is dry.� Let shower water run over the incisions and then pat dry.
Glue dressing typically peels off in 2-3 weeks.
Abdominal/incisional pain and discomfort, shoulder/scapular pain, bloating, and mild nausea, as well as bruising/stiffness and swelling at the incision sites are common after surgery.� If felt to be excessive, notify us.
Please start postoperative pain management using over the counter medications such as Tylenol and Ibuprofen, per instructions on the bottle, as long as there are no medical reasons why you cannot take these medications.
Ice the incisions sites for 20 minutes every hour or so to help with postoperative incisional pain and reduce postoperative surgical site swelling.� Take care NOT to get an ice burn on the skin surface.
A warm heating pad is often helpful to alleviate shoulder/scapular back pains after laparoscopic procedures.� This pain typically dissipates 24-72hrs post op.
Transition to a low fat diet as tolerated after surgery if not experiencing postoperative nausea or significant bloating/distention.� Some fatty food intolerance may occur shortly after surgery (cramps,bloating, nausea,diarrhea with fat intake).
Constipation is common following surgery and postoperative narcotic use.� May use a stool softener such as Colace (100 mg 2x day) to prevent constipation
If no BM 24hrs after surgery, recommend starting daily Miralax
If no BM in 24-48hrs after starting Miralax --> recommend then using a dose of magnesium citrate or milk of magnesia with a Senokot tablet to help alleviate post operative constipation as long as there is no nausea/vomiting and passing gas.
Resume all preoperative medications as prescribed, unless directed otherwise.
Do not drive or drink alcohol for 24 hrs after having anesthesia or while taking narcotic pain medications.
Resume regular daily light activities, such as walking, standing and going up/down stairs as tolerated within 24hrs of surgery.� Please refrain from lifting over 20 lbs or strenuous exercise until postoperative follow up visit &/or approximately 4
weeks.�
Call the office with a fever above 101� F, nausea with vomiting, severe abdominal pain, yellowing of skin or eyes, spreading redness and drainage from incision sites or with any concerns/questions.
If not arranged prior to surgery, please call the office to schedule or confirm your 2 week� postoperative surgical follow-up office visit with Dr. Rothman.
Stand Alone Forms: Same Day Services Discharge, Return to Work
Referrals:
Sarai Terrell MD [Family Provider] -
Rob Rothman MD [Active] - in two to three weeks
Prescriptions:
New
acetaminophen 325 mg Tablet
650 mg PO Q6HPRN PRN (Reason: mild pain/ fever>100.5F) Qty: 0 0RF
Continued
metformin 500 mg Tablet
500 mg PO BID
levonorgestrel-ethinyl estrad [Altavera (28)] 0.15-0.03 mg Tablet
1 tab PO HS
Changed
ibuprofen [Advil] 200 mg Tablet
400 mg PO Q6HPRN PRN (Reason: MILD PAIN) Qty: 0 0RF
Discontinued
diclofenac sodium 75 mg tablet,delayed release (DR/EC)
75 mg PO BIDPRN PRN (Reason: mild pain)
Discharge Orders:
Discharge Patient (As Directed); Ordered 01/29/25
Ordered By: Yecenia Perales
Discharge Date and Time
Discharge Date/Time: 01/29/25 13:47
Print Language: [id number]
== END 2025-01-29 13:47 | disposition home or self-care (01) | DRG 418 ==
LOC: 1 ACUTE 16:30
PROVIDERS: Nurse Practitioner Family; Physician Assistant Medical; Student in an Organized Health Care Education/Training Program; Surgery; ADMITTING PHYSICIAN Student in an Organized Health Care Education/Training Program; ATTENDING PHYSICIAN Internal Medicine; EMERGENCY PHYSICIAN Emergency Medicine; FAMILY PHYSICIAN Internal Medicine; OTHER PHYSICIAN Psychiatry & Neurology Psychiatry; OTHER PHYSICIAN Surgery
PROC: 0FT44ZZ Resection of Gallbladder, Percutaneous Endoscopic Approach (ICD-10-PCS; 2025-01-28)
DX: K80.01 Calculus of gallbladder with acute cholecystitis with obstruction (principal); K82.1 Hydrops of gallbladder; Z68.41 Body mass index [BMI] 40.0-44.9, adult; E28.2 Polycystic ovarian syndrome; Z82.49 Family history of ischemic heart disease and other diseases of the circulatory system; Z83.3 Family history of diabetes mellitus; Z82.3 Family history of stroke; Z79.84 Long term (current) use of oral hypoglycemic drugs; E66.01 Morbid (severe) obesity due to excess calories
CPT/HCPCS: 88304; 74177; 80053; 82306; 82607; 82746; 83690; 83735; 84443; 84703; 85025; 85027; 87502; 87811; 96361; 96365; 99284; Q9967